=== PATIENT | male | born 1955 | race Caucasian/White ===

== ENCOUNTER 2016-04-24 11:03 | Inpatient (IN) | payer OTHER ==
[~2016-04-24] VITALS: Ht 172.7 cm; Wt 67.5 kg
[2016-04-24 12:14] LABS: EOSINOPHIL (%) 2.1 % (0-5); EOSINOPHIL COUNT 0.2 K/uL (0-0.3); HEMATOCRIT 43.3 % (38.0-50.0); IMMATURE GRANULOCYTE (%) 0.5 % (0.0-0.7); IMMATURE GRANULOCYTE COUNT 0.5 K/uL; LYMPHOCYTE COUNT 1.7 K/uL (1.0-2.8); MCH 26.7 PG (29.0-34.0); MCHC 33.3 G/DL (30.0-36.0); MCV 80.2 FL (86-99); MONOCYTE (%) 8.5 % (3-12); MONOCYTE COUNT 0.8 K/uL (0-0.8); NEUTROPHIL (%) 71.1 % (45-76); NEUTROPHIL COUNT 6.8 K/uL (1.8-6.4); RBC DIS.WIDTH-CV 14.9 % (11.8-14.6); RBC DIS.WIDTH-SD 43.6 % (39-53); WHITE BLOOD COUNT 9.6 K/uL (4.1-10.2)
[2016-04-24 12:26] LABS: CHLORIDE 105 mEq/L (99-109); POTASSIUM 4.4 mEq/L (3.7-5.4); PROTHROMBIN TIME 10.5 (9.2-11.2); PTT 27.5 (25-32); SODIUM 139 mEq/L (136-147)
[2016-04-24 12:28] LABS: GLUCOSE 104 mg/dL (70-99)
[2016-04-24 12:29] LABS: ANION GAP 9 MEQ/L (2-14)
[2016-04-24 12:32] LABS: GFR ESTIMATE (CALCULATED) > 59 mL/min/
[2016-04-24 12:33] LABS: UREA NITROGEN (BUN) 13 mg/dL (9-23)
[2016-04-24 13:06] LABS: HDL CHOLESTEROL 28 MG/DL (Desirable>=40); LDL CHOLESTEROL 118 mg/dL (Desirable<100); NON-HDL CHOLESTEROL 170 mg/dL (Desirable<160); TOTAL CHOLESTEROL 198 mg/dL (Desirable<200); TRIGLYCERIDES 261 MG/DL (Normal: <150)
[2016-04-24 13:23] LABS: Estimated Average Glucose 117 mg/dL (70-123); HEMOGLOBIN A1c (GLYCOHEMOGLOB) 5.7 % HGB (Below 5.7)
[2016-04-24 13:25] LABS: MEAN PLAT.VOLUME 12.1 uM^3 (9.0-12.4); PLAT.SUFFICIENCY DECREASED; PLATELET COUNT UNABLE TO REPORT K/uL (156-360); USER ID CCL
[2016-04-24] MEDS ORDERED: ZESTRIL20 MG PO (16:03)
[2016-04-24] MEDS ORDERED: FLEXERIL10 MG PO (16:03)
[2016-04-24] MEDS ORDERED: ASPIRIN325 MG PO (16:03)
[2016-04-24 17:47] VITALS: BP 162/91
[2016-04-24 20:17] VITALS: BP 145/84
[2016-04-25 00:25] VITALS: BP 142/80
[2016-04-25 04:19] VITALS: BP 104/57
[2016-04-25 07:21] LABS: ANION GAP 8 MEQ/L (2-14); CHLORIDE 106 MEQ/L (99-109); GFR ESTIMATE (CALCULATED) > 59 mL/min/; GLUCOSE 87 mg/dL (70-99); MAGNESIUM 2.2 mg/dl (1.3-2.7); POTASSIUM 4.1 MEQ/L (3.7-5.4); SAMPLE HEMOLYSIS CHECK 0; SAMPLE ICTERIC CHECK 0; SAMPLE LIPEMIA CHECK 0; SODIUM 141 MEQ/L (136-147); UREA NITROGEN (BUN) 15 mg/dL (9-23)
[2016-04-25 07:29] LABS: HEMATOCRIT 42.3 % (38.0-50.0); MCH 26.8 PG (29.0-34.0); MCHC 32.4 G/DL (30.0-36.0); MCV 82.6 FL (86-99); RBC DIS.WIDTH-CV 14.9 % (11.8-14.6); RED BLOOD COUNT 5.12 M/uL (4.00-5.50)
[2016-04-25 07:34] LABS: WHITE BLOOD COUNT 6.7 K/uL (4.1-10.2)
[2016-04-25 09:39] LABS: MEAN PLAT.VOLUME 11.1 uM^3 (9.0-12.4); PLATELET COUNT 236 K/uL (156-360)
[2016-04-25 11:53] VITALS: BP 138/69
[2016-04-25 15:55] VITALS: BP 139/80
[2016-04-25 19:19] VITALS: BP 126/73
[2016-04-26 00:32] VITALS: BP 123/71
[2016-04-26 04:14] VITALS: BP 125/69
[2016-04-26 08:48] VITALS: BP 131/76
[2016-04-26 09:52] LABS: ANION GAP 9 MEQ/L (2-14); CHLORIDE 103 MEQ/L (99-109); GFR ESTIMATE (CALCULATED) > 59 mL/min/; GLUCOSE 82 mg/dL (70-99); POTASSIUM 4.1 MEQ/L (3.7-5.4); SAMPLE HEMOLYSIS CHECK 0; SAMPLE ICTERIC CHECK 0; SAMPLE LIPEMIA CHECK 0; SODIUM 138 MEQ/L (136-147); UREA NITROGEN (BUN) 17 mg/dL (9-23)
[2016-04-26 09:56] LABS: HEMATOCRIT 42.8 % (38.0-50.0); MCHC 32.7 G/DL (30.0-36.0); MCV 82.6 FL (86-99); MEAN PLAT.VOLUME 11.6 uM^3 (9.0-12.4); PLATELET COUNT 179 K/uL (156-360); RBC DIS.WIDTH-CV 14.9 % (11.8-14.6); RBC DIS.WIDTH-SD 44.8 % (39-53); RED BLOOD COUNT 5.18 M/uL (4.00-5.50); WHITE BLOOD COUNT 5.7 K/uL (4.1-10.2)
[2016-04-26 16:57] VITALS: BP 128/65
[2016-04-26 19:51] VITALS: BP 127/69
[2016-04-27 00:43] VITALS: BP 124/75
[2016-04-27 04:05] VITALS: BP 119/71
[2016-04-27 07:43] VITALS: BP 114/63
[2016-04-27 11:34] VITALS: BP 127/75
[2016-04-27 15:37] VITALS: BP 134/71
[2016-04-27 19:34] VITALS: BP 139/75
[2016-04-28 00:19] VITALS: BP 101/53
[2016-04-28 04:29] VITALS: BP 94/55
[2016-04-28 08:05] VITALS: BP 113/68
[2016-04-28 11:08] VITALS: BP 121/66
[2016-04-28 15:11] VITALS: BP 119/59
[2016-04-28 20:00] VITALS: BP 126/69
[2016-04-29] VITALS: BP 114/69
[2016-04-29 04:00] VITALS: BP 104/57
[2016-04-29 07:24] VITALS: BP 125/76
[2016-04-29] MEDS ORDERED: PRAVASTATIN SOD40 MG PO (09:18)
[2016-04-29 14:33] LABS: DRVVT Mixing Study Interp Not Indicated (()); PROTEIN C FUNCTIONAL ACTIVITY+ 158 % (70-180); PTT-LA 46 sec (<=40); Protein S, Free 131 % normal (57-171); dRVVT Screen 43 sec (<=45)
[2016-04-30 08:26] LABS: ANTITHROMBIN III ACTIVITY+ 127 % activi (80-120)
[2016-05-12] MEDS ORDERED: ASPIRIN325 MG PO (20:07)
[2016-05-12] MEDS ORDERED: SENNA PLUS TAB1 EACH PO (20:07)
[2016-05-12] MEDS ORDERED: PRAVASTATIN SOD40 MG PO (20:07)
[2016-05-12] MEDS ORDERED: POLYETHYLENE GL17 GM PO (20:07)
== END 2016-04-29 11:52 | DRG 65 ==
LOC: EME 11:03 → 5SOUTH 15:30 → EDOF 15:30 → 5SOUTH 17:40
PROVIDERS: Emergency Medicine; Internal Medicine; Physician Assistant; Specialist
DX: I63.9 Cerebral infarction, unspecified (principal); G81.94 Hemiplegia, unspecified affecting left nondominant side; I10 Essential (primary) hypertension; E78.5 Hyperlipidemia, unspecified; R26.89 Other abnormalities of gait and mobility; R47.81 Slurred speech; R29.704 NIHSS score 4; R42 Dizziness and giddiness; F17.210 Nicotine dependence, cigarettes, uncomplicated
CPT/HCPCS: 70450; 70544; 70549; 70551; 80048; 80061; 81240 90; 83036; 83090 90; 83735; 85025; 85027; 85240 90; 85300 90; 85303 90; 85305 90; 85306 90; 85307 90; 85610; 85613 90; 85730; 85730 90; 86146 90; 86147 90; 92523 GN; 92610 GN; 93005; 93306; 97530 GP; 99281; 99285; J1650